=== PATIENT | female | born 1975 | race Caucasian/White ===

== ENCOUNTER 2020-10-24 08:22 | Emergency (ER) | payer OTHER, SELFPAY ==
--- NOTE | 2020-10-24 08:24 | ED.GENADULT ---
HPI - General Adult General Chief complaint: Urogenital-Female Stated complaint: poss UTI Time Seen by Provider: 10/24/20 08:24 Source: patient Mode of arrival: ambulatory Limitations: no limitations History of Present Illness HPI narrative: 45-year-old female patient presents to the [facility] with complaints of urinary symptoms that started last night. Patient states she noticed some frequency going to the bathroom last night and states that this morning she noticed a pink-tinged to her urine. Patient states it is starting to burn a little bit when she urinates. Denies any low back pain, fevers, body aches or chills. Patient denies take anything for the pain. Patient states she had something similar to this couple of years ago and states that it progressed so fast that she ended up in the hospital. Patient states she did try to take some NyQuil last night to try and sleep which is why her blood pressure is elevated today. Patient is on oral blood pressure medication states it tends to go up anytime she takes [id number] stuff. Related Data Home Medications Medication Instructions Recorded Confirmed amlodipine 5 mg PO DAILY 10/24/20 10/24/20 labetalol 300 mg PO DAILY 10/24/20 10/24/20 losartan 50 mg PO DAILY 10/24/20 10/24/20 pravastatin 40 mg PO DAILY 10/24/20 10/24/20 trazodone 50 mg PO DAILY 10/24/20 10/24/20 Allergies Allergy/AdvReac Type Severity Reaction Status Date / Time No Known Drug Allergies Allergy Unknown Verified 03/16/15 18:38 Review of Systems Review of Systems: Narrative: CONSTITUTIONAL: Denies fever, chills, or sweats. EYES: Denies visual changes, redness, or discharge. ENT: Denies rhinorrhea, congestion, sore throat, or otalgia. CARDIOVASCULAR: Denies chest pain, palpitations, or edema. RESPIRATORY: Denies cough or dyspnea. GASTROINTESTINAL: Denies abdominal pain, nausea, vomiting, or diarrhea. GENITOURINARY: Positive dysuria with hematuria. SKIN: Denies rash or itching. MUSCULOSKELETAL: Denies back pain, joint pain, or myalgia. NEUROLOGIC: Denies headache, numbness, or weakness. PSYCHIATRIC: Denies anxiety or depression. [facility] Past Medical History Medical History (Updated 10/24/20 @ 08:50 by TRUDY Villafana) Anxiety COPD (chronic obstructive pulmonary disease) Hypertension MRSA (methicillin resistant staph aureus) culture positive Tendinitis Right wrist Social History Social History Gender identity (if verbalized by the patient): Female Comments At the time of my signature I agree with nursing past medical history, surgical, social, and family history. There is no relevant family history pertinent to the presenting complaint. Exam Narrative: Exam Narrative: GENERAL: Well-appearing, well-nourished, and in no acute distress. HEAD: Normocephalic, atraumatic. EYES: PERRLA and EOMI. ENT: Nares clear, no rhinorrhea or epistaxis. Mucous membranes moist. NECK: Supple. No lymphadenopathy CHEST: Clear to auscultation. No respiratory distress. HEART: Regular rate and rhythm. No murmur heard. Normal peripheral pulses. ABDOMEN: Soft, nontender, nondistended, normal active bowel sounds. No CVA tenderness on percussion. Slight lower abdominal pressure noted. EXTREMITIES: Normal range of motion. No edema. SKIN: Warm, dry, no rash. NEURO: No focal deficits. Alert and oriented x3. Course Vital Signs Vital signs: Vital Signs Temperature 36.2 C L 10/24/20 08:37 Pulse Rate 92 10/24/20 08:37 Respiratory Rate 18 10/24/20 08:37 Blood Pressure 183/110 H 10/24/20 08:37 Pulse Oximetry 96 10/24/20 08:37 Temperature 36.2 C L 10/24/20 08:37 Pulse Rate 92 10/24/20 08:37 Respiratory Rate 18 10/24/20 08:37 Blood Pressure 183/110 H 10/24/20 08:37 Pulse Oximetry 96 10/24/20 08:37 Vital signs reviewed The patient has been informed that they may have pre-hypertension or Hypertension based on a BP reading in
[2020-10-24 08:37] VITALS: BP 183/110; PULSE 92; RESP 18; TEMP 36.2; O2SAT 96
[2020-10-24 08:57] VITALS: BP 176/102
== END 2020-10-24 08:57 | disposition home or self-care (01) ==
PROVIDERS: Emergency Provider Nurse Practitioner Family; PCP Internal Medicine
DX: N30.01 Acute cystitis with hematuria (principal); J44.9 Chronic obstructive pulmonary disease, unspecified; I10 Essential (primary) hypertension; F41.9 Anxiety disorder, unspecified; Z86.14 Personal history of Methicillin resistant Staphylococcus aureus infection
CPT/HCPCS: 81003; 87077; 87086; 87088; 87186; 99203; G0463